=== PATIENT | female | born 1975 | race Caucasian/White ===

== ENCOUNTER → 2018-06-19 | Outpatient (CLI) | payer BC ==
--- NOTE | 2018-06-19 17:18 | RAD ---
Pelvic ultrasound, 06/19/2018: HISTORY: Menorrhagia, spotting Transabdominal and transvaginal scans were obtained. The uterus measures 8 x 5 x 4 cm. The central uterine echo complex measures 4-5 mm. A small amount of fluid is noted in the cervical canal. The ovaries are of normal size. No adnexal mass is seen. No free fluid is evident in the pelvis. IMPRESSION: 1. Small amount of fluid in the cervical canal. 2. The pelvic ultrasound is otherwise unremarkable. Electronically signed by: Jerad Warner MD (06/19/2018 5:14 PM) [facility]
== END | disposition home or self-care (01) ==
LOC: US 09:35
PROVIDERS: ATTEND Specialist
DX: N92.0 Excessive and frequent menstruation with regular cycle (principal)
CPT/HCPCS: 76830; 76856